=== PATIENT | female | born 1970 ===

== ENCOUNTER 2017-08-15 06:32 | Emergency (ER) | payer OTHER ==
[2017-08-15 06:41] VITALS: BP 134/84; PULSE 84; RESP 16; TEMP 98.4
--- NOTE | 2017-08-15 07:19 | ED ---
General Adult HPI - General Chief complaint: Recheck/Abnormal Lab/Rx Stated complaint: chronic pain Time Seen by Provider: 08/15/17 07:04 Source: patient, RN notes reviewed Mode of arrival: ambulatory Limitations: no limitations - History of Present Illness Initial comments: 47 yo female presents for medication refill. Patient has history of chronic neck pain, and carpal tunnel. She recently moved here from [place]. She has an appointment with her new physician on August 24. Patient states her neck and right hip pain is unchanged. She has medication to last her through today. She has no additional complaints. - Related Data Previous Rx's Medication Instructions Recorded Diazepam [Valium] 10 mg PO BID PRN #16 tablet 08/15/17 HYDROcodone/APAP 10-325MG [[place] 1 tab PO TID PRN #24 tab 08/15/17 10-325] Allergies Allergy/AdvReac Type Severity Reaction Status Date / Time No Known Allergies Allergy Verified 08/15/17 06:41 Review of Systems ROS Statement: Those systems with pertinent positive or pertinent negative responses have been documented in the HPI. ROS Other: All systems not noted in ROS Statement are negative. Past Medical History Additional Past Medical History / Comment(s): bulging discs, right shoulder pain. carpal tunnel. tendonitis. History of Any Multi-Drug Resistant Organisms: None Reported Past Surgical History: Adenoidectomy, Tonsillectomy, Tubal Ligation, Uterine Ablation Additional Past Surgical History / Comment(s): bilateral carpal tunnel release. eustachian tubes. breast augmentation. Past Psychological History: No Psychological Hx Reported Smoking Status: Current every day smoker Past Alcohol Use History: None Reported Past Drug Use History: None Reported General Exam Limitations: no limitations General appearance: alert, in no apparent distress Head exam: Present: atraumatic, normocephalic Eye exam: Present: normal appearance, PERRL ENT exam: Present: normal exam Neck exam: Present: normal inspection, full ROM. Absent: tenderness Respiratory exam: Present: normal lung sounds bilaterally, respiratory distress Cardiovascular Exam: Present: regular rate, normal rhythm GI/Abdominal exam: Present: soft. Absent: distended, tenderness Extremities exam: Present: normal inspection, normal capillary refill. Absent: pedal edema Neurological exam: Present: alert, oriented X3, CN II-XII intact. Absent: motor sensory deficit Psychiatric exam: Present: normal affect, normal mood Skin exam: Present: warm, dry, intact. Absent: cyanosis, diaphoretic Course Vital Signs 08/15/17 06:35 Temperature 98.4 F Pulse Rate 84 Respiratory 16 Rate Blood Pressure 134/84 O2 Sat by Pulse 98 Oximetry Medical Decision Making - Medical Decision Making 47-year-old female presents for medication refill. Patient was informed that typically chronic medications are not refilled in the emergency department, specifically pain medications. I will give her a short course to get her to her primary care physician as this is her first visit to this ER and she is new to the area. Disposition Clinical Impression: Encounter for medication refill, Chronic pain Disposition: HOME SELF-CARE Condition: Good Prescriptions: Diazepam [Valium] 10 mg PO BID PRN #16 tablet PRN Reason: Pain HYDROcodone/APAP 10-325MG [[place] 10-325] 1 tab PO TID PRN #24 tab PRN Reason: Pain Referrals: None,Stated [Primary Care Provider] - 1-2 days Time of Disposition: 07:19
== END 2017-08-15 07:36 | disposition home or self-care (01) ==
LOC: EC 06:32
DX: G89.29 Other chronic pain (principal); M54.2 Cervicalgia; Z76.0 Encounter for issue of repeat prescription; G56.03 Carpal tunnel syndrome, bilateral upper limbs; F17.200 Nicotine dependence, unspecified, uncomplicated
CPT/HCPCS: 99282

== ENCOUNTER 2017-08-24 18:16 | Emergency (ER) | payer OTHER ==
[2017-08-24 18:30] VITALS: BP 106/71; PULSE 98; RESP 18; TEMP 98.1
[2017-08-24] MEDS ORDERED: DIAZEPAM 5 MG TAB PO STA (18:30)
[2017-08-24] MEDS ORDERED: HYDROcodone/APAP 10-325MG 1 EACH TAB PO ONE (18:30)
--- NOTE | 2017-08-24 18:34 | ED ---
General Adult HPI - General Chief complaint: Recheck/Abnormal Lab/Rx Stated complaint: MED REFILL Time Seen by Provider: 08/24/17 18:23 Source: patient, RN notes reviewed Mode of arrival: ambulatory Limitations: no limitations - History of Present Illness Initial comments: Patient 47-year-old female who presents emergency room today with chief complaint of urinary medication refill. Patient does admit that she's needed to the area to see her family doctor earlier today who was supposed to some scrapes to the pharmacy. She states she went to the pharmacy and they were not there. 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 Patient does admit that she's been on chronic pain medication for carpal tunnel and neck pain. Patient denies any injury or trauma to the areas. She states she ran out of medications that were prescribed to her last night which took her last doses. Patient does admit that she was here in the emergency room 9 days ago and received these medications. Patient denies any recent fever , chills, shortness of breath, chest pain, abdominal pain, nausea or vomiting, dysuria or hematuria, constipation or diarrhea, headaches or visual changes, or any other complaints. - Related Data Previous Rx's Medication Instructions Recorded Diazepam [Valium] 10 mg PO BID PRN #16 tablet 08/15/17 HYDROcodone/APAP 10-325MG [[place] 1 tab PO TID PRN #24 tab 08/15/17 10-325] Allergies Allergy/AdvReac Type Severity Reaction Status Date / Time No Known Allergies Allergy Verified 08/24/17 18:24 Review of Systems ROS Statement: Those systems with pertinent positive or pertinent negative responses have been documented in the HPI. ROS Other: All systems not noted in ROS Statement are negative. Past Medical History Additional Past Medical History / Comment(s): bulging discs, right shoulder pain. carpal tunnel. tendonitis. History of Any Multi-Drug Resistant Organisms: None Reported Past Surgical History: Adenoidectomy, Tonsillectomy, Tubal Ligation, Uterine Ablation Additional Past Surgical History / Comment(s): bilateral carpal tunnel release. eustachian tubes. breast augmentation. Past Psychological History: No Psychological Hx Reported Smoking Status: Current every day smoker Past Alcohol Use History: None Reported Past Drug Use History: None Reported General Exam - General Exam Comments Initial Comments: General: The patient is awake and alert, in no distress, and does not appear acutely ill. Eye: Pupils are equal, round and reactive to light, extra-ocular movements are intact. No nystagmus. There is normal conjunctiva bilaterally. No signs of icterus. Ears, nose, mouth and throat: There are moist mucous membranes and no oral lesions. Neck: The neck is supple, there is no tenderness or JVD. Musculoskeletal: Normal ROM, no tenderness. Strength 5/5. Sensation intact. Neurological: A&O x 3. CN II-XII intact, There are no obvious motor or sensory deficits. Coordination appears grossly intact. Speech is normal. Skin: Skin is warm and dry and no rashes or lesions are noted. Psychiatric: Cooperative, appropriate mood & affect, normal judgment. Limitations: no limitations Course Vital Signs 08/24/17 18:24 Temperature 98.1 F Pulse Rate 98 Respiratory 18 Rate Blood Pressure 106/71 O2 Sat by Pulse 97 Oximetry Medical Decision Making - Medical Decision Making Patient advised that we could not fill her medications for chronic pain here in the emergency room. She did receive a prescription on August 15. Patient advised that she does need follow-up family doctor tomorrow morning for her medications. Will be given one dose here both her Valium and [place]. Disposition Clinical Impression: Chronic pain Disposition: HOME SELF-CARE Condition: Good Instructions: Chronic Pain (ED) Additional Instructions: Please follow-up with the family doctor tomorrow for her medications. Please return to emergency room for any other concerns. Referrals: None,Stated [Primary Care Provider] - 1-2 days Vinny Grayson MD [STAFF PHYSICIAN] - 1-2 days Time of Disposition: 18:33
== END 2017-08-24 18:40 | disposition home or self-care (01) ==
LOC: EC 18:16
DX: G89.29 Other chronic pain (principal); M54.2 Cervicalgia; G56.01 Carpal tunnel syndrome, right upper limb; Z76.0 Encounter for issue of repeat prescription; F17.200 Nicotine dependence, unspecified, uncomplicated
CPT/HCPCS: 99281